=== PATIENT | male | born 1985 | race Caucasian/White ===

== ENCOUNTER 2019-07-12 09:03 | Emergency (ER) | payer OTHER, MEDICAID, SELFPAY ==
[2019-07-12 09:10] VITALS: BP 128/75; PULSE 69; RESP 16; TEMP 36.6; O2SAT 100; BMI 27.7
--- NOTE | 2019-07-12 09:22 | ED_ITS ---
HPI - URI/Sore Throat General Chief Complaint: Upper Respiratory Symptoms Stated Complaint: cough Time Seen by Provider: 07/12/19 09:22 Source: patient Mode of arrival: Ambulatory History of Present Illness HPI Narrative: Patient is a 33-year-old male who presents with cough ongoing for about 1 week. He does it started off clear that has progressed into a yellow. He denies any shortness of breath. He gets coughing spells very coughs f requently unable to stop. He is a smoker. He denies any fevers or chills. Chest pain only when he coughs. Multiple other people have also been sick with something similar. MD Complaint: cough Onset (ago): week(s) (1) Relieving factors: nothing Description of mucous: clear Context: sick contacts Related Data Previous Rx's Medication Instructions Recorded albuterol sulfate 2 puff INHALATION Q4-6H PRN #8 gram 07/12/19 doxycycline hyclate 100 mg PO DAILY #14 cap 07/12/19 Allergies Allergy/AdvReac Type Severity Reaction Status Date / Time Penicillins Allergy Verified 07/12/19 09:10 Review of Systems Review of Systems Narrative: GENERAL: Denies chills, fatigue, malaise, fever, sweats, travel HEENT: Denies sinus pain, ear pain, sore throat, difficulty swallowing, neck pain RESPIRATORY: See HPI CARDIOVASCULAR: Denies chest pain, palpitations, orthopnea, edema GASTROINTESTINAL: Denies nausea, vomiting, abdominal pain, diarrhea, constipation, melena. : Denies dysuria, frequency, incontinence, hematuria, urinary retention, flank pain. MUSCULOSKELETAL: Denies weakness, joint pain, or bony pain SKIN: No rash, no erythema, no pruritus NEUROLOGIC: Denies weakness, dizziness, headache, numbness, change in speech, confusion PSYCHIATRIC: No concerning psychosocial issues. 12 point review of systems is negative except for those stated above and HPI PFSH Social History Smoking Status: Current every day smoker Social History Smoking Status: Current every day smoker Exam Initial Vital Signs Initial Vital Signs: Vital Signs Temperature 97.9 F 07/12/19 09:10 Pulse Rate 69 07/12/19 09:10 Respiratory Rate 16 07/12/19 09:10 Blood Pressure 128/75 07/12/19 09:10 Pulse Oximetry 100 07/12/19 09:10 GENERAL: Well-appearing, well-nourished and in no acute distress. HEENT: Head atraumatic,EOMI, pupils reactive, face symmetric, moist mucous membranes CARDIOVASCULAR: Regular rate and rhythm without murmurs, rubs or gallops. RESPIRATORY: Breath sounds equal bilaterally, no wheezes rales or rhonchi. ABDOMEN: Soft, nontender. Normoactive bowel sounds all 4 quadrants. No guarding or rebound. EXTREMITIES: Normal range of motion, no clubbing or edema. Neurovascularly intact NEUROLOGICAL: Alert and oriented x4.Normal gait and speech. Cranial nerves II through XII grossly intact. SKIN: Warm, dry, no laceration, no petechiae, no rashes or lesions. Course Vital Signs Vital signs: Vital Signs - 8 hr 07/12/19 09:10 Temperature 97.9 F Pulse Rate 69 Respiratory Rate 16 Blood Pressure 128/75 Pulse Oximetry 100 MDM - URI/Sore Throat MDM Narrative Medical decision making narrative: Tenzin to use albuterol and spacer. He is in no respiratory distress at this time. Ongoing for more than a week will start him on doxycycline for possible atypical pneumonia. Discharge Plan Departure Patient Disposition: Home Clinical Impression: Upper respiratory infection Qualifiers: URI type: unspecified viral URI Qualified Code(s): J06.9 - Acute upper respiratory infection, unspecified Discharge Date/Time: 07/12/19 09:41 Instructions: DI for Acute Bronchitis Activity Restrictions/Additional Instructions: *You have been diagnosed with upper respiratory infection *What to do: Stop smoking rest, increased fluid in *Continue to take medications as directed Doxycycline 100 mg twice a day for 7 days Albuterol inhaler 1-2 puffs every 4 hours if needed for shortness of breath or coughing spells *Follow up with your primary care provider in 2-3 days *Return to ER if you should have increasing shortness of breath worsening cough fever not controlled or any new, worsening or concerning symptoms Prescriptions: New doxycycline hyclate 100 mg capsule 100 mg PO DAILY Qty: 14 RF: 0 albuterol sulfate 90 mcg/actuation HFA aerosol inhaler 2 puff INHALATION Q4-6H PRN (Reason: shortness of breath or wheezing) Qty: 8 RF: 0 Referrals: [facility] [Outside]
== END 2019-07-12 09:41 | disposition home or self-care (01) ==
PROVIDERS: Emergency Provider Emergency Medicine
DX: J06.9 Acute upper respiratory infection, unspecified (principal)
CPT/HCPCS: 99282

== ENCOUNTER 2020-01-08 18:13 | Emergency (ER) | payer SELFPAY ==
[2020-01-08 18:33] VITALS: BP 151/76; PULSE 74; RESP 15; TEMP 36.7; O2SAT 100; BMI 26.1
--- NOTE | 2020-01-08 18:47 | ED_ITS ---
HPI - Dizziness General Chief Complaint: Dizziness Stated Complaint: Dizzy spells Time Seen by Provider: 01/08/20 18:20 Source: patient Mode of arrival: Ambulatory Limitations: no limitations History of Present Illness HPI Narrative: 34-year-old male daily smoker without significant medical history presents with a chief complaint of 2 episodes of significant dizziness over the course of the day. Both of which were very intense and characterized by the room spinning and lasted 5-15 seconds. He denies any obvious provocation, injury or recent illness. He has had no runny nose, sneezing, ear pain, change in smell, fever, chills nor chest pain or shortness of breath. He denies any numbness, tingling or weakness. He has had no chest pain or palpitations. He denies any change in diet or medication. MD complaint: dizziness Onset (ago): minute(s) Timing: sudden onset Description: room spinning History of similar episodes: No History of trauma: No Severity: mild Relieving factors: nothing Exacerbating factors: movement Associated symptoms: nausea and vomiting Related Data Previous Rx's Medication Instructions Recorded albuterol sulfate 2 puff INHALATION Q4-6H PRN #8 gram 07/12/19 doxycycline hyclate 100 mg PO DAILY #14 cap 07/12/19 meclizine 25 mg PO BID-TID PRN #14 tab 01/08/20 Allergies Allergy/AdvReac Type Severity Reaction Status Date / Time Penicillins Allergy Verified 07/12/19 09:10 Review of Systems Constitutional Constitutional: Denies chills, Denies fatigue, Denies fever(s), Denies frequent falls, Denies lethargy and Denies weakness Eyes Eyes: Denies change in vision, Denies eye discharge, Denies irritation and Denies loss of vision ENT Ears, Nose, Mouth, and Throat: Denies change in voice, Reports dizziness, Denies neck pain, Denies sore throat and Denies throat swelling Cardiovascular Cardiovascular: Denies chest pain, Denies irregular heart rhythm, Denies lightheadedness, Denies palpitations, Denies dyspnea, Denies dyspnea on exertion and Denies orthopnea Respiratory Respiratory: Denies cough, Denies dyspnea, Denies dyspnea on exertion and Denies wheezing Gastrointestinal Gastrointestinal: Denies abdominal pain, Denies change in bowel habits, Denies diarrhea, Reports nausea and Reports vomiting (X1 with dizziness) Genitourinary Genitourinary: Denies hematuria, Denies flank pain, Denies urinary incontinence and Denies urinary urgency Musculoskeletal Musculoskeletal: Denies back pain, Denies muscle weakness, Denies neck pain, Denies numbness and Denies tingling Integumentary/Breasts Skin/Breast: Denies pruritus, Denies erythema, Denies rash and Denies wounds Neurologic Neurologic: Denies behavioral changes, Denies confusion, Reports dizziness, Denies frequent falls, Denies loss of vision, Denies numbness, Denies tingling and Denies weakness Psychiatric Psychiatric: Denies anxiety, Denies behavioral changes, Denies confusion, Denies depression, Denies homicidal ideation and Denies suicidal ideation Endocrine Endocrine: Denies fatigue, Denies flushing and Denies palpitations Hematologic/Lymphatic Hematologic/Lymphatic: Denies easy bruising Allergic/Immunologic Allergic/Immunologic: Denies urticaria, Denies throat swelling and Denies wheezing Patient History Social History Smoking Status: Current every day smoker Smoking Status: Current every day smoker tobacco type: cigarettes alcohol intake frequency: 0-2 drinks per day Substance Use Type: does not use Exam Narrative Exam Narrative: GEN: AOx3 and in mild distress EYES: Pupils are equal, round, and reactive to light and accommodation. Extraoccular muscles are intact bilaterally. There is no subconjunctival hemorrhage or exudate. a EARS: Tympanic membranes are clear bilaterally without any evidence of obvious effusion, erythema or bulging CHEST: Lungs are clear to auscultation bilaterally and free of wheezes, rales, or rhonchi. Heart rate is regular rhythm, there are no murmurs, clicks, rubs, or gallops. There is no chest wall tenderness. ABD: Abdomen is soft and nontender. There is no guarding or rebound. Bowel sounds are normal in all 4 quadrants. There is no mass or organomegaly. EXT: Full painless ROM of all extremities with no loss of sensation or strength. SKIN: Warm, pink, and dry. No erythema or rash NIH Stroke Scale 1a. LOC: Patient is alert and keenly responsive (0) 1b. LOC Questions: Patient answers both LOC questions accurately (0) 1c. LOC Commands: Patient performs both tasks correctly (0) 2. Best Gaze: Normal (0) 3. Visual: No visual loss (0) 4. Facial palsy: Normal symmetrical movements (0) 5. Motor arm: No drift (0) 6. Motor leg: No drift (0) 7. Limb ataxia: Absent (0) 8. Sensory: Normal (0) 9. Best language: No aphasia; normal (0) 10. Dysarthria: Normal (0) 11. Extinction and inattention: No abnormality (0) NIHSS: 0 Initial Vital Signs Initial Vital Signs: Vital Signs Temperature 98.1 F 01/08/20 18:33 Pulse Rate 74 01/08/20 18:33 Respiratory Rate 15 01/08/20 18:33 Blood Pressure 151/76 H 01/08/20 18:33 Pulse Oximetry 100 01/08/20 18:33 Course Orders Ordered: ED Orders 01/08/20 18:38 EKG-12 Lead Stat Vital Signs Vital signs: Vital Signs - 8 hr 01/08/20 18:33 Temperature 98.1 F Pulse Rate 74 Respiratory Rate 15 Blood Pressure 151/76 H Pulse Oximetry 100 Discharge Plan Departure Patient Disposition: Home Clinical Impression: Vertigo Discharge Date/Time: 01/08/20 19:01 Instructions: DI for Vertigo Activity Restrictions/Additional Instructions: There is no evidence of an emergent or life threatening illness at this time, but follow up with your doctor in 1-2 days is recommended nonetheless to continue to rule out serious underlying causes of your symptoms. Please call the office for an appointment. Please return to the Emergency Department for any worsening or persistent symptoms. Please take medications as directed. Prescription electronically transmitted to [facility] in [place] Prescriptions: New meclizine 25 mg tablet 25 mg PO BID-TID PRN (Reason: dizziness) Qty: 14 RF: 0 No Action doxycycline hyclate 100 mg capsule 100 mg PO DAILY Qty: 14 RF: 0 albuterol sulfate 90 mcg/actuation HFA aerosol inhaler 2 puff INHALATION Q4-6H PRN (Reason: shortness of breath or wheezing) Qty: 8 RF: 0
== END 2020-01-08 19:01 | disposition home or self-care (01) ==
PROVIDERS: Emergency Provider Emergency Medicine
DX: R42 Dizziness and giddiness (principal)
CPT/HCPCS: 93005; 99281; 99283

== ENCOUNTER 2020-05-14 08:20 | Emergency (ER) | payer SELFPAY ==
[2020-05-14] VITALS (11 sets, daily range): BP systolic 115–138; BP diastolic 66–89; PULSE 56–74; RESP 16–18; TEMP 36.5; O2SAT 94–100; BMI 25.7
--- NOTE | 2020-05-14 08:45 | DI.RAD.S_ITS ---
PROCEDURE: XR CHEST 2V INDICATIONS: hemoptysis, smoker TECHNIQUE: 2 views of the chest were acquired. COMPARISON: None. FINDINGS: Surgical changes and devices: None. Lungs and pleura: Lungs are clear. No pleural effusions or pneumothorax. Mediastinum: Mediastinal contours are normal. Heart size is normal. Bones and chest wall: No suspicious bony abnormalities. Soft tissues appear unremarkable. IMPRESSION: Normal-appearing plain films. For this patient's presenting history of hemoptysis, please consider a dedicated chest CT with IV contrast for further evaluation. Dictated by: Shakir Llanes M.D. on 05/14/2020 at 7:58 Approved by: Shakir Llanes M.D. on 05/14/2020 at 7:58
--- NOTE | 2020-05-14 08:47 | ED.ABDPAIN ---
HPI - Abdominal Pain General Chief Complaint: Abdominal Pain Stated Complaint: cough up blood Time Seen by Provider: 05/14/20 08:31 Source: patient Mode of arrival: Ambulatory Limitations: no limitations History of Present Illness HPI narrative: CC hemoptysis HPI: The patient is a 34-year-old male who states that this morning he woke up and struck clearing his throat and he coughed up sputum that had blood mixed with it. It was a small amount of blood. He states that he felt as though there was something in his throat and he kept clearing his throat. He denies any headache sinus congestion sore throat. He has a history of peptic ulcer disease in over the last few days has had a lot of indigestion and heartburn. The patient was concerned that he was coughing up the blood from an ulcer. The patient denies that he drinks any alcohol. He denies any fall or injury. He has not been dizzy or lightheaded. He states that there is a family history of cancer in his family he does smoke cigarettes but does not drink alcohol or use marijuana. He has had no fever chills or sweats. He has had no headache today no nasal drainage sinus congestion epistaxis or sore throat. He denies any significant coughing shortness of breath or chest pain. He has had no palpitations or racing of his heart. He has had no diarrhea change in bowel habits melena hematochezia. He denies any urinary symptoms. He has had no pain or discomfort associated with this. the patient had 1 episode. Related Data Previous Rx's Medication Instructions Recorded albuterol sulfate 2 puff INHALATION Q4-6H PRN #8 gram 07/12/19 doxycycline hyclate 100 mg PO DAILY #14 cap 07/12/19 meclizine 25 mg PO BID-TID PRN #14 tab 01/08/20 pantoprazole [Protonix] 20 mg PO DAILY #30 tab 05/14/20 sucralfate [Carafate] 10 ml PO QID PRN #420 ml 05/14/20 Allergies Allergy/AdvReac Type Severity Reaction Status Date / Time Penicillins Allergy Verified 05/14/20 08:31 Review of Systems Review of Systems Narrative: His review of systems were all negative except for those mentioned in the history of present illness. Patient History Social History Smoking Status: Current every day smoker Smoking Status: Current every day smoker tobacco type: cigarettes alcohol intake frequency: 0-2 drinks per day Substance Use Type: does not use Exam Narrative Exam Narrative: PHYSICAL EXAM: CONSTITUTIONAL: Awake, Alert, Oriented, Coherent, Cooperative in NAD. Does not appear toxic or ill. HEAD: AT/NC EENT: PERRL, FROM of eyes, no discharge, no nystagmus NOSE:No epistaxis or nasal drainage MOUTH:Oral mucosa is moist, appears mildly [place] and a pale pink, posterior pharynx is without erythema or exudate. NECK: Supple, no obvious JVD, Trachea is midline without stridor, no palpable LN. SPINE: Palpation of the cervical, Thoracic, Lumbar or Sacral spine reveals no gross deformity or tenderness. No CVA tenderness. THORAX: No deformity, retractions, chest wall tenderness. LUNGS: Clear, symmetrical breath sounds without respiratory distress. HEART: Normal heart tones, regular rhythm and rate without murmur. ABDOMEN: Soft, non-tender, , no guarding, rebound, rigidity or palpable mass. EXTREMITIES: No edema, deformity, tenderness or cyanosis. SKIN: No rash, bruising, petechiae or purpura. NEURO: Awake, alert, oriented, conversive, cranial nerves II-XII are symmetrical , moves all 4 extremities and is ambulatory. MENTAL HEALTH: Does not appear anxious or depressed. Initial Vital Signs Initial Vital Signs: Vital Signs Pulse Rate 74 05/14/20 08:26 Pulse Oximetry 100 05/14/20 08:26 Course Course Course Narrative: 0944: Chest x-ray revealed: IMPRESSION: Normal-appearing plain films. For this patient's presenting history of hemoptysis, please consider a dedicated chest CT with IV contrast for further evaluation. CT of the patient's chest revealed: MPRESSION: Normal chest CT, without an imaging explanation found for hemoptysis. The patient will be treated as though he has GERD with his history and discharged home on Protonix and Carafate. Orders Ordered: ED Orders 05/14/20 08:45 XR chest 2V Stat 05/14/20 08:56 Complete Blood Count AUTO DIFF Stat Comprehensive Metabolic Panel Stat Partial Thromboplastin Time Stat Prothrombin Time INR Stat Reticulocyte Count, Percent Stat Type and Screen Stat 05/14/20 09:44 CT chest w con Stat Vital Signs Vital signs: Vital Signs - 8 hr 08/02/20 08:26 05/14/20 08:27 05/14/20 08:30 Temperature 97.7 F Pulse Rate 74 72 73 Respiratory Rate 18 Blood Pressure 138/74 119/70 Pulse Oximetry 100 100 99 05/14/20 09:00 05/14/20 09:23 05/14/20 09:30 Temperature Pulse Rate 73 65 66 Respiratory Rate Blood Pressure 120/81 119/82 Pulse Oximetry 94 98 98 05/14/20 10:00 05/14/20 10:13 Temperature Pulse Rate 59 L 60 Respiratory Rate Blood Pressure 119/82 125/89 Pulse Oximetry 99 100 MDM - Abdominal Pain Lab Data Result diagrams: 05/14/20 08:56 05/14/20 08:56 Labs: Lab Results 05/14/20 05/14/20 05/14/20 Range/Units 08:56 08:56 08:56 WBC 6.6 (4.5-11.0) X10^3/uL RBC 4.96 (4.5-5.9) X10^6/uL Hgb 15.6 (13.5-17.5) g/dL Hct 45.0 (41-53) % MCV 90.7 (80-100) fL MCH 31.3 (26-34) PG MCHC 34.6 (30-36) % RDW 13.3 (11.6-14.8) % Plt Count 254 (150-400) X10^3/uL Neut % (Auto) 56.2 (50-75) % Lymph % (Auto) 32.5 (25-40) % [place] % (Auto) 6.8 (3-14) % Eos % (Auto) 3.8 (2-4) % Baso % (Auto) 0.7 (0-2) % Neut # (Auto) 3700 (6943-2949) /uL Lymph # (Auto) 2200 (0066-4565) /uL [place] # (Auto) 500 (0-900) /uL Eos # (Auto) 200 (0-450) /uL Baso # (Auto) 0 (0-100) /uL Percent Retic (0.87-2.60) % PT 11.4 (10.1-12.7) SECONDS INR 1.0 (0.9-1.3) APTT 35 (26.4-36.2) SECONDS Sodium 137 (137-145) mmol/L Potassium 4.3 (3.4-5.1) mmol/L Chloride 102 (98-107) mmol/L Carbon Dioxide 30 (22-32) mmol/L BUN 18 (9-20) mg/dL Creatinine 0.89 (0.66-1.25) mg/dL Estimated GFR > 60.0 (>60) mL/min BUN/Creatinine Ratio 20.2 (6-22) Glucose 104 H (70-100) mg/dL Calcium 9.7 (8.4-10.2) mg/dL Total Bilirubin 0.7 (0.2-1.3) mg/dL AST 26 (17-59) IU/L ALT 20 (<50) IU/L Alkaline Phosphatase 72 (38-126) U/L Total Protein 7.4 (6.3-8.2) g/dL Albumin 4.6 (3.5-5.0) g/dL Globulin 2.8 (1.7-4.1) g/dL Albumin/Globulin Ratio 1.6 (1.0-2.8) Blood Type Antibody Screen 05/14/20 05/14/20 Range/Units 08:56 08:56 WBC (4.5-11.0) X10^3/uL RBC (4.5-5.9) X10^6/uL Hgb (13.5-17.5) g/dL Hct (41-53) % MCV (80-100) fL MCH (26-34) PG MCHC (30-36) % RDW (11.6-14.8) % Plt Count (150-400) X10^3/uL Neut % (Auto) (50-75) % Lymph % (Auto) (25-40) % [place] % (Auto) (3-14) % Eos % (Auto) (2-4) % Baso % (Auto) (0-2) % Neut # (Auto) (9600-1019) /uL Lymph # (Auto) (9944-0681) /uL [place] # (Auto) (0-900) /uL Eos # (Auto) (0-450) /uL Baso # (Auto) (0-100) /uL Percent Retic 0.9 (0.87-2.60) % PT (10.1-12.7) SECONDS INR (0.9-1.3) APTT (26.4-36.2) SECONDS Sodium (137-145) mmol/L Potassium (3.4-5.1) mmol/L Chloride (98-107) mmol/L Carbon Dioxide (22-32) mmol/L BUN (9-20) mg/dL Creatinine (0.66-1.25) mg/dL Estimated GFR (>60) mL/min BUN/Creatinine Ratio (6-22) Glucose (70-100) mg/dL Calcium (8.4-10.2) mg/dL Total Bilirubin (0.2-1.3) mg/dL AST (17-59) IU/L ALT (<50) IU/L Alkaline Phosphatase (38-126) U/L Total Protein (6.3-8.2) g/dL Albumin (3.5-5.0) g/dL Globulin (1.7-4.1) g/dL Albumin/Globulin Ratio (1.0-2.8) Blood Type O Positive Antibody Screen Negative Discharge Plan Departure Patient Disposition: Home Clinical Impression: Hemoptysis, Tobacco user Gastroesophageal reflux disease Qualifiers: Esophagitis presence: esophagitis presence not specified Qualified Code(s): K21.9 - Gastro-esophageal reflux disease without esophagitis Discharge Date/Time: 05/14/20 11:10 Instructions: DI for Gastroesophageal Reflux Disease (GERD), DI for Dyspepsia, DI for Hemoptysis Activity Restrictions/Additional Instructions: 1. All of your studies including blood work chest x-ray and CT scan of your chest were all negative. Coughing up blood is called hemoptysis. The source of your bloody is unknown. It needs to be more watched and monitored. The most common cause is sinus congestion nose bleeds and acute bronchitis. 2. If you develop a rapid heart rate, palpitations, chest pain, worsening recurrent shortness of breath, dizziness or feeling faint as though to pass out you need to return to the emergency department. 3. In 48-72 hours you need to be seen by your primary care physician. 4. For your indigestion and heartburn you need to take Carafate 1 g as needed up to 4 times a day and the Protonix 20 mg once a day for the next 30 days. Prescriptions: New pantoprazole [Protonix] 20 mg tablet,delayed release (DR/EC) 20 mg PO DAILY Qty: 30 RF: 0 sucralfate [Carafate] 100 mg/mL suspension 10 ml PO QID PRN (Reason: indigestion, heartburn abdominal pain) Qty: 420 RF: 0 No Action meclizine 25 mg tablet 25 mg PO BID-TID PRN (Reason: dizziness) Qty: 14 RF: 0 doxycycline hyclate 100 mg capsule 100 mg PO DAILY Qty: 14 RF: 0 albuterol sulfate 90 mcg/actuation HFA aerosol inhaler 2 puff INHALATION Q4-6H PRN (Reason: shortness of breath or wheezing) Qty: 8 RF: 0 Stand Alone Forms: Work Release Note
[2020-05-14 09:05] LABS: Add Manual Diff / Slide Review NO; Basophils Absolute Auto 0 /uL (0-100); Basophils Percent Auto 0.7 % (0-2); Eosinophils Absolute Auto 200 /uL (0-450); Eosinophils Percent Auto 3.8 % (2-4); Hemoglobin 15.6 g/dL (13.5-17.5); Lymphocytes Absolute Auto 2200 /uL (1100-4500); Lymphocytes Percent Auto 32.5 % (25-40); Mean Corpuscular HGB Conc 34.6 % (30-36); Mean Corpuscular Hemoglobin 31.3 PG (26-34); Mean Corpuscular Volume 90.7 fL (80-100); Monocytes Absolute Auto 500 /uL (0-900); Monocytes Percent Auto 6.8 % (3-14); Neutrophils Absolute Auto 3700 /uL (1500-7000); Neutrophils Percent Auto 56.2 % (50-75); Platelet Count 254 X10^3/uL (150-400); Red Blood Cell Count 4.96 X10^6/uL (4.5-5.9); Red Cell Distribution Width 13.3 % (11.6-14.8); White Blood Cell Count 6.6 X10^3/uL (4.5-11.0)
[2020-05-14 09:08] LABS: Reticulocyte Count, Percent 0.9 % (0.87-2.60)
[2020-05-14 09:12] LABS: Prothrombin Time 11.4 SECONDS (10.1-12.7)
[2020-05-14 09:15] LABS: PTT Partial Thromboplastin Tim 35 SECONDS (26.4-36.2)
[2020-05-14 09:17] LABS: Alanine Aminotransferase 20 IU/L (<50); Albumin 4.6 g/dL (3.5-5.0); Albumin Globulin Ratio 1.6 (1.0-2.8); Alkaline Phosphatase 72 U/L (38-126); Aspartate Aminotransferase 26 IU/L (17-59); BUN Creatinine Ratio 20.2 (6-22); Bilirubin Total 0.7 mg/dL (0.2-1.3); Blood Urea Nitrogen 18 mg/dL (9-20); Calcium 9.7 mg/dL (8.4-10.2); Carbon Dioxide 30 mmol/L (22-32); Chloride 102 mmol/L (98-107); Estimated Glomerular Filt Rate > 60.0 mL/min (>60); Globulin 2.8 g/dL (1.7-4.1); Glucose 104 mg/dL (70-100); HEMOLYSIS 19 (0-50); Potassium 4.3 mmol/L (3.4-5.1); Sodium 137 mmol/L (137-145); Total Protein 7.4 g/dL (6.3-8.2)
--- NOTE | 2020-05-14 09:44 | DI.CT.S_ITS ---
PROCEDURE: CT CHEST W CON INDICATIONS: Hemoptysis without chest pain or tachycardia, smoker TECHNIQUE: After the administration of intravenous contrast, 5 mm thick sections acquired from the pulmonary apices to the posterior costophrenic angles. 1 mm axial lung, 5 mm thick coronal and sagittal reformats and 7 mm axial MIP were acquired. For radiation dose reduction, the following was used: automated exposure control, adjustment of mA and/or kV according to patient size. COMPARISON: [facility], CR, XR CHEST 2V, 05/14/2020, 8:38. FINDINGS: Image quality: Excellent. Lungs and pleura: No acute air space opacities. No pleural effusions or pneumothorax. Central and peripheral airways are patent and normal in caliber. Mediastinum: Heart size is normal. No pericardial effusion. No mediastinal or hilar adenopathy by size criteria. Thoracic aorta and central pulmonary arteries are normal in size. Esophagus is normal in caliber. No hiatal hernia. Bones and chest wall: No suspicious bony lesions. No vertebral body compression fractures. Mild levoconvex scoliotic curvature is noted. No axillary or supraclavicular adenopathy by size criteria. Thyroid gland demonstrates no significant abnormality. Abdomen: Visualized upper abdominal solid organs appear normal. Upper abdominal bowel loops are normal in caliber. IMPRESSION: Normal chest CT, without an imaging explanation found for hemoptysis. Incidental note is made of: Levoconvex scoliotic curvature Dictated by: Shakir Llanes M.D. on 05/14/2020 at 9:18 Approved by: Shakir Llanes M.D. on 05/14/2020 at 9:20
== END 2020-05-14 11:10 | disposition home or self-care (01) ==
PROVIDERS: Emergency Provider Emergency Medicine
DX: K21.9 Gastro-esophageal reflux disease without esophagitis (principal); R04.2 Hemoptysis; Z72.0 Tobacco use
CPT/HCPCS: 36415; 71046; 71260; 80053; 85025; 85045; 85610; 85730; 86850; 86900; 86901; 99284

== ENCOUNTER 2021-03-09 11:36 | Emergency (ER) | payer OTHER, SELFPAY ==
[2021-03-09 11:58] VITALS: BP 123/74; PULSE 86; RESP 15; TEMP 36.6; O2SAT 99; BMI 24.4
--- NOTE | 2021-03-09 12:03 | DI.RAD.S_ITS ---
PROCEDURE: XR SHOULDER LT MIN 2V INDICATIONS: left shoulder pain TECHNIQUE: 3 views of the shoulder were acquired. COMPARISON: None. FINDINGS: Bones: No fractures or dislocations. No suspicious bony lesions. Visualized ribs appear intact. Soft tissues: No suspicious soft tissue calcifications. IMPRESSION: Source of left shoulder pain is not found. Dictated by: Geoffrey Sutherland M.D. on 03/09/2021 at 12:54 Approved by: Geoffrey Sutherland M.D. on 03/09/2021 at 12:54
--- NOTE | 2021-03-09 15:14 | ED_ITS ---
HPI - Extremity Problem General Chief complaint: Extremity Problem,Nontraumatic Stated complaint: left shoulder pain going down arm Time Seen by Provider: 03/09/21 15:14 Source: patient Mode of arrival: Ambulatory Limitations: no limitations History of Present Illness HPI Narrative: 35 Male daily smoker with noncontributory medical history presents with a chief complaint of left-sided neck pain with sharp stabbing pain radiating to his shoulder and arm and occasional numbness and tingling. He denies any weakness. He denies any recent fall, injury or other trauma. He takes no blood thinner and denies any fever or chills. He has been lifting heavier objects as of late but denies any other obvious overuse type injury. His pain is worse with use and improves with rest MD Complaint: extremity pain Onset (ago): day(s) Pain Consistency: constant Location: left Quality: stabbing and sharp Radiation: distal Relieving factors: rest Exacerbating factors: range of motion Associated symptoms: denies other symptoms Related Data Previous Rx's Medication Instructions Recorded albuterol sulfate 2 puff INHALATION Q4-6H PRN #8 gram 07/12/19 doxycycline hyclate 100 mg PO DAILY #14 cap 07/12/19 meclizine 25 mg PO BID-TID PRN #14 tab 01/08/20 pantoprazole [Protonix] 20 mg PO DAILY #30 tab 05/14/20 sucralfate [Carafate] 10 ml PO QID PRN #420 ml 05/14/20 diazepam [Valium] 2 mg PO BID-TID PRN #10 tab 03/09/21 hydrocodone-acetaminophen 1 tab PO Q4-6H PRN #10 tab 03/09/21 ketorolac 10 mg PO Q6H PRN #14 tab 03/09/21 methylprednisolone [Medrol ([place])] See Rx Instructions .ROUTE 03/09/21 .COMPLEX #21 ea Allergies Allergy/AdvReac Type Severity Reaction Status Date / Time Penicillins Allergy Verified 03/09/21 12:00 Review of Systems Constitutional Constitutional: Denies chills, Denies fatigue, Denies fever(s), Denies frequent falls, Denies lethargy and Denies weakness Eyes Eyes: Denies change in vision, Denies eye discharge, Denies irritation and Denies loss of vision ENT Ears, Nose, Mouth, and Throat: Denies change in voice, Denies dizziness, Reports neck pain, Denies sore throat and Denies throat swelling Cardiovascular Cardiovascular: Denies chest pain, Denies irregular heart rhythm, Denies lightheadedness, Denies palpitations, Denies dyspnea, Denies dyspnea on exertion and Denies orthopnea Respiratory Respiratory: Denies cough, Denies dyspnea, Denies dyspnea on exertion and Denies wheezing Gastrointestinal Gastrointestinal: Denies abdominal pain, Denies change in bowel habits, Denies diarrhea, Denies nausea and Denies vomiting Musculoskeletal Musculoskeletal: Reports neck pain, Denies numbness, Reports radiating pain into limb and Reports tingling Integumentary/Breasts Skin/Breast: Denies pruritus, Denies erythema, Denies rash and Denies wounds Neurologic Neurologic: Denies behavioral changes, Denies confusion, Denies dizziness, Denies frequent falls, Denies loss of vision, Denies numbness, Reports tingling and Denies weakness Psychiatric Psychiatric: Denies anxiety, Denies behavioral changes, Denies confusion, Denies depression, Denies homicidal ideation and Denies suicidal ideation Endocrine Endocrine: Denies fatigue, Denies flushing and Denies palpitations Hematologic/Lymphatic Hematologic/Lymphatic: Denies easy bruising Allergic/Immunologic Allergic/Immunologic: Denies urticaria, Denies throat swelling and Denies wheezing Patient History Social History Smoking Status: Current every day smoker Smoking Status: Current every day smoker tobacco type: cigarettes alcohol intake frequency: holidays/special occasions only Substance Use Type: does not use Exam Narrative Exam Narrative: GENERAL: [35] year old patient appears stated age. Well- nourished, well-developed patient, in mild distress. HEAD: Atraumatic. Normocephalic. EYES: Pupils equal round and reactive. Extraocular motions intact. No scleral icterus. No injection or drainage. ENT: Nose without bleeding, purulent drainage. Throat without erythema, tonsillar hypertrophy or exudate. Airway patent. NECK: Trachea midline. Non tender no worsening discomfort with axial loading, there is some tenderness to palpation of the left-sided paraspinal musculature CARDIOVASCULAR: Regular rate and rhythm without murmurs, gallops, or rubs. RESPIRATORY: Clear to auscultation. Breath sounds equal bilaterally. No wheezes, rales, or rhonchi. GASTROINTESTINAL: Abdomen soft, non-tender, nondistended. EXTREMITIES: No edema or joint tenderness. No measurable weakness. There is some tingling overlying the volar forearm BACK: Nontender without deformity or crepitance. No flank tenderness. NEURO: AOx3. SKIN: No rash or erythema of visible areas Initial Vital Signs Initial Vital Signs: Vital Signs Temperature 97.9 F 03/09/21 11:58 Pulse Rate 86 03/09/21 11:58 Respiratory Rate 15 03/09/21 11:58 Blood Pressure 123/74 03/09/21 11:58 Pulse Oximetry 99 03/09/21 11:58 Course Orders Ordered: ED Orders 03/09/21 12:03 XR shoulder LT min 2V Stat Vital Signs Vital signs: Vital Signs - 8 hr 03/09/21 11:58 Temperature 97.9 F Pulse Rate 86 Respiratory Rate 15 Blood Pressure 123/74 Pulse Oximetry 99 MDM - Extremity (Nontraumatic) MDM Narrative Medical decision making narrative: Patient with left-sided neck pain radiating to his arm. He does have some tingling but no weakness. This is most consistent with a cervical radiculopathy, likely exacerbated by his recent lifting of heavy objects. He has had no trauma, no fever and takes no blood thinners. This exam is very reassuring. Return precautions given and questions answered to his apparent satisfaction Discharge Plan Departure Patient Disposition: Home Clinical Impression: Cervical radiculopathy Instructions: DI for Cervical Radiculopathy Activity Restrictions/Additional Instructions: *You have been diagnosed with [left sided cervical radiculopathy ] *What to do: *Please continue to take your regular medications as directed. [ ] New medication prescriptions sent to your pharmacy: [ ] [ x] New medication written as a paper prescription [ ] No new medications given *Please follow up with your primary care provider in 2-3 days, call for an appointment. Let them know you were seen in the Emergency Department and that we ask that you be seen in follow up. We will electronically transmit a record of today's note if your PCP is in our system *If you do not have a primary care provider please contact the [facility] Resource line at [phone]. They will ask some questions about your medical history and help get you set up with a doctor in the community. *Return to Emergency Department if you should have any new, worsening or concerning symptoms, such as [fever greater than 101 F, shaking chills, worsening pain, persistent vomiting or other bothersome symptoms] Prescriptions: New hydrocodone-acetaminophen 5-325 mg tablet 1 tab PO Q4-6H PRN (Reason: pain) Qty: 10 RF: 0 ketorolac 10 mg tablet 10 mg PO Q6H PRN (Reason: pain) Qty: 14 RF: 0 diazepam [Valium] 2 mg tablet 2 mg PO BID-TID PRN (Reason: muscle spasm) Qty: 10 RF: 0 methylprednisolone [Medrol ([place])] 4 mg tablets,dose pack See Rx Instructions .ROUTE .COMPLEX Qty: 21 RF: 0 No Action meclizine 25 mg tablet 25 mg PO BID-TID PRN (Reason: dizziness) Qty: 14 RF: 0 pantoprazole [Protonix] 20 mg tablet,delayed release (DR/EC) 20 mg PO DAILY Qty: 30 RF: 0 sucralfate [Carafate] 100 mg/mL suspension 10 ml PO QID PRN (Reason: indigestion, heartburn abdominal pain) Qty: 420 RF: 0 doxycycline hyclate 100 mg capsule 100 mg PO DAILY Qty: 14 RF: 0 albuterol sulfate 90 mcg/actuation HFA aerosol inhaler 2 puff INHALATION Q4-6H PRN (Reason: shortness of breath or wheezing) Qty: 8 RF: 0
[2021-03-09 15:39] VITALS: BP 125/79; PULSE 61; O2SAT 100
== END 2021-03-09 15:39 | disposition home or self-care (01) ==
PROVIDERS: Emergency Provider Emergency Medicine
DX: M54.12 Radiculopathy, cervical region (principal)
CPT/HCPCS: 73030; 99281; 99283